=== PATIENT | female | born 1955 | race Caucasian/White ===

== ENCOUNTER 2019-10-04 14:06 | Observation (INO) ==
[2019-10-04] MEDS ORDERED: Aspirin 325 MG TABLET PO ONE (14:28)
[2019-10-04] MEDS ORDERED: GI Cocktail 40 ML EACH PO ONE (14:29)
[2019-10-04 15:02] LABS: Basophils % 0.4 %; Eosinophils % 0.3 %; Hematocrit 39.9 % (35.3-44.9); Immature Granulocytes % 0.8 % (0-4); Lymphocytes # 2.3 K/mcL (0.6-4.6); Lymphocytes % 21.8 %; Mean Corpuscular HGB Conc 35.1 g/dL (31.6-35.5); Mean Corpuscular Hemoglobin 29.5 pg (28.0-33.3); Mean Platelet Volume 9.2 fL (9.4-12.4); Monocytes # 0.8 K/mcL (0.0-1.3); Monocytes % 7.5 %; Neutrophils # 7.3 K/mcL (1.6-8.9); Platelet Count 327 K/mcL (140-400); Red Blood Count 4.75 M/mcL (3.82-4.97); Red Cell Distribution Width 12.5 % (11.5-14.5); Segmented Neutrophils % 69.2 %; White Blood Count 10.5 K/mcL (4.3-11.1)
[2019-10-04 15:07] LABS: Bilirubin,Urine Negative (Negative); Blood,Urine Negative (Negative); Clarity,Urine Clear (Clear); Color,Urine Yellow (Yellow); Glucose,Urine (UA) Normal (Normal); Ketones,Urine Trace mg/dL (Negative); Leukocyte Esterase,Urine Negative (Negative); Nitrite,Urine Negative (Negative); Protein,Urine Negative (Neg-Trace); Specific Gravity,Urine 1.007 (1.010-1.025); Urobilinogen,Urine Normal (Normal)
[2019-10-04 15:17] LABS: Amphetamine Screen,Urine Negative ng/mL (Cutoff=1000); Barbiturate Screen,Urine Negative ng/mL (Cutoff=200); Benzodiazepines Screen,Urine Negative ng/mL (Cutoff=200); Cannabinoid Screen,Urine Negative ng/mL (Cutoff = 50); Cocaine Screen,Urine Negative ng/mL (Cutoff= 300); Opiate Screen,Urine Negative ng/mL (Cutoff=300); Phencyclidine Screen,Urine Negative ng/mL (Cutoff=25)
[2019-10-04 15:25] LABS: Acetaminophen < 10 mcg/mL (10-20); Alanine Aminotransferase 19 Units/L (7-52); Albumin 4.6 g/dL (3.5-5.7); Alkaline Phosphatase 68 Units/L (34-104); Aspartate Amino Transferase 16 Units/L (13-39); BUN/Creatinine Ratio 25 (6-26); Bilirubin,Total 1.1 mg/dL (0.3-1.0); Blood Urea Nitrogen 14 mg/dL (8-23); Calcium 9.6 mg/dL (8.6-10.3); Carbon Dioxide 26 mEq/L (23-29); Chloride 91 mEq/L (98-107); Ethanol < 10 mg/dL (Less than 10); Globulin 2.3 g/dL (2.4-3.5); Glucose 117 mg/dL (70-105); Lipase 55 Units/L (11-82); Osmolality,Calculated 270 (280-300); Potassium 3.6 mEq/L (3.5-5.1); Salicylate < 2.5 mg/dL (15.0-30.0); Sodium 129 mEq/L (136-145); Total Protein 6.9 g/dL (6.4-8.9); Troponin I < 0.03 ng/mL (< 0.04); eGFR For African Americans > 60 (> 60); eGFR For Non-African Americans > 60 (> 60)
[2019-10-04 15:37] LABS: Thyroid Stimulating Hormone 1.847 mcIU/mL (0.340-5.600)
[2019-10-04] MEDS ORDERED: *HR* LORazepam 0.5 MG TABLET PO STA (18:44)
[2019-10-04] MEDS ORDERED: Acetaminophen 325 MG TABLET PO PRN (19:16)
[2019-10-04] MEDS ORDERED: *HR* LORazepam 2 MG/ML VIAL IM PRN (19:16)
[2019-10-04] MEDS ORDERED: *HR* LORazepam 1 MG TABLET PO PRN (19:16)
[2019-10-04] MEDS ORDERED: Haloperidol Lactate 5 MG/ML VIAL IM PRN (19:16)
[2019-10-04] MEDS ORDERED: Mag Hydrox/Al Hydrox/Simeth 30 ML UDC PO PRN (19:16)
[2019-10-04] MEDS ORDERED: MOM Conc 10 ML UD.LIQ PO PRN (19:16)
[2019-10-04] MEDS ORDERED: haloperidoL 5 MG TABLET PO PRN (19:16)
[2019-10-04] MEDS: traZODone 50 MG TABLET PO PRN ×2 (20:57→22:48)
[2019-10-04] MEDS: *HR* LORazepam 0.5 MG TABLET PO SCH (20:58)
[2019-10-05] MEDS ORDERED: atenoloL 50 MG TABLET PO SCH (09:00)
[2019-10-05 09:40] VITALS: BP 96/55
[2019-10-05] MEDS: *HR* LORazepam 0.5 MG TABLET PO SCH (09:42)
== END 2019-10-05 13:25 | disposition home or self-care (01) ==
LOC: 1ANU 14:06 → EMEROOARM 14:06 → 1ANU 19:55
PROVIDERS: ADMIT Psychiatry & Neurology Psychiatry; ATTEND Psychiatry & Neurology Psychiatry